=== PATIENT | female | born 1970 | race Caucasian/White ===

== ENCOUNTER 2016-07-22 07:15 | Emergency (ER) | payer OTHER ==
[~2016-07-22 07:15] MED LIST: CYCLOBENZAPRINE5 M1 PO; LABETALOL HCL200 MG; LABETALOL HCL200 MG PO; PEPCID AC20 M1; PERCOCET 5MG/AP1 TA1 PO; PRENATAL PLUS1 EACH; PRENATAL1 EACH PO; ZOLOFT50 M1 PO; ZOLOFT50 MG PO
[2016-07-22] MEDS ORDERED: birth control (07:37)
[2016-07-22] MEDS ORDERED: OSTEO BI FLEX PO (07:38)
[2016-07-22] MEDS ORDERED: ALEVE220 M3 PO (07:38)
[2016-07-22] MEDS ORDERED: CLARITIN10 M6 PO (07:38)
[2016-07-22] MEDS ORDERED: ROBAXIN-750750 M1 PO (09:13)
[2016-07-22] MEDS ORDERED: MEDROL4 M2 PO (09:13)
== END 2016-07-22 10:02 ==
LOC: EDMED 07:15
DX: M54.12 Radiculopathy, cervical region (principal); F32.9 Major depressive disorder, single episode, unspecified; F41.9 Anxiety disorder, unspecified; M19.90 Unspecified osteoarthritis, unspecified site; I10 Essential (primary) hypertension; Z98.890 Other specified postprocedural states
CPT/HCPCS: J1170; J2930; J3360